=== PATIENT | female | born 1990 | race African-American/Black ===

== ENCOUNTER 2018-09-21 06:28 | Inpatient (IN) ==
[2018-09-21] MEDS ORDERED: fentaNYL 100 MCG/2 ML VIAL IV STA ×2 (07:03→08:54)
[2018-09-21] MEDS ORDERED: SODIUM CHLORIDE 0.9% 1,000 ML IV STA (07:03)
[2018-09-21] MEDS ORDERED: ONDANSETRON 4 MG/2 ML VIAL IV STA (07:03)
[2018-09-21 07:22] LABS: Basophils # 0.1 10*3/uL (0.0-0.2); Basophils % 0.9 % (0.0-0.8); Eosinophils # 0.1 10*3/uL (0.0-0.87); Eosinophils % 1.4 % (0.00-10.9); Hematocrit 22.7 VOL% (35.7-47.0); Hemoglobin 7.5 GM/DL (12.0-16.0); Immature Granulocytes % 0.6 %; Immature Granulocytes Absolute 0.05 #; Lymphocytes # 2.3 10*3/uL (1.4-4.0); Lymphocytes % 27.6 % (21.3-54.2); Mean Corpuscular Volume 88.3 FL (87-102); Mean Platelet Volume 9.3 FL (9.6-12.0); Monocytes % 12.9 % (1.7-12.7); NRBC # 0.46 10*3/uL; Neutrophils % 56.6 % (38.7-73.9); Platelet Count 581 T/CUMM (130-400); Red Blood Count 2.57 MC/CUMM (3.8-5.5); Red Cell Distribution Width 22.6 % (9.3-17.3); White Blood Count 8.1 T/CUMM (4-12)
[2018-09-21 07:35] LABS: Albumin 3.9 G/DL (3.4-5.0); Bilirubin,Total 3.6 MG/DL (0.2-1.0); Osmolality,Calculated 279.1 MOS/KG (273-304); Total Protein 7.9 G/DL (6.4-8.3)
[2018-09-21 07:39] LABS: Hypochromasia 1+; Target Cells Few
[2018-09-21 07:40] LABS: Elliptocytes Few; Macrocytosis Slight; Platelet Estimate Adequate; Polychromasia Slight; Sickle Cells 1+
[2018-09-21 07:41] LABS: Pappenheimer Bodies Few
[2018-09-21 07:42] LABS: Howell-Jolly Bodies Few
[2018-09-21] MEDS ORDERED: diphenhydrAMINE 50 MG/1 ML VIAL ONE (07:56)
[2018-09-21] MEDS ORDERED: diphenhydrAMINE 50 MG/1 ML VIAL IV STA (08:05)
[2018-09-21 08:29] LABS: Apearance,Urine CLEAR (Clear); Bacteria,Urine Occasional /HPF (Few); Bilirubin,Urine Negative (Negative); Blood, Urine Large mg/dL (Negative); Glucose,Urine (UA) Negative (Negative); Ketones,Urine Negative (Negative); Mucus,Urine Occasional /LPF (Occasional); Nitrite,Urine Negative (Negative); Protein,Urine Negative; RBC,Urine 195 /HPF (0-4); Squamous Epithelial Cell,Urine Occasional /HPF (0-10); Urine Color Yellow (Yellow); Urine Specific Gravity 1.012 (1.001-1.035); WBC,Urine 3 /HPF (0-6)
[2018-09-21 08:30] LABS: Barbiturates Screen,Urine Negative (Negative); Benzodiazepines Screen,Urine Negative (Negative); Cannabinoid Screen,Urine Negative (Negative); Opiate Screen,Urine Negative (Negative); Phencyclidine Screen,Urine Negative (Negative)
[2018-09-21] MEDS ORDERED: HYDROmorphone 2 MG/1 ML VIAL IV STA ×2 (09:48→11:35)
[2018-09-21 10:07] LABS: Hemoglobin A1 (Alkaline) 30.3 % (96.5-98.5); Hemoglobin A2 (Alkaline) 2.8 % (1.5-3.5); Hemoglobin S (Alkaline) 66.9 %
[2018-09-21] MEDS ORDERED: ACETAMINOPHEN 325 MG TABLET PO PRN (11:01)
[2018-09-21] MEDS ORDERED: HYDROmorphone 2 MG/1 ML VIAL IV PRN (11:04)
[2018-09-21] MEDS ORDERED: diphenhydrAMINE CAP 50 MG CAPSULE PO PRN (11:05)
[2018-09-21] MEDS ORDERED: SODIUM CHLORIDE 0.9% 1,000 ML IV PRN (11:05)
[2018-09-21] MEDS: SODIUM CHLORIDE 0.45% 1,000 ML IV SCH (14:17)
[2018-09-21] MEDS: ONDANSETRON 4 MG/2 ML VIAL IV PRN ×2 (15:55→22:43)
[2018-09-21] MEDS: MORPHINE 4 MG/1 ML VIAL IV PRN ×2 (16:21→20:08)
[2018-09-21] MEDS ORDERED: HYDROmorphone 2 MG/1 ML VIAL IM PRN (21:50)
[2018-09-21] MEDS ORDERED: diphenhydrAMINE 50 MG/1 ML VIAL IM PRN (21:53)
[2018-09-21] MEDS: HYDROmorphone 2 MG/1 ML VIAL IV PRN (22:38)
[2018-09-21] MEDS: diphenhydrAMINE 50 MG/1 ML VIAL IV PRN (22:40)
[2018-09-22] MEDS: oxyCODONE IR 5 MG TABLET PO PRN ×2 (03:31→07:29)
[2018-09-22] MEDS: MORPHINE 4 MG/1 ML VIAL IV PRN (03:56)
[2018-09-22] MEDS: SODIUM CHLORIDE 0.45% 1,000 ML IV SCH ×3 (04:01→12:22)
[2018-09-22] MEDS: HYDROmorphone 2 MG/1 ML VIAL IV PRN ×2 (05:18→11:15)
[2018-09-22] MEDS: diphenhydrAMINE 50 MG/1 ML VIAL IV PRN ×2 (05:21→11:18)
[2018-09-22] MEDS: ONDANSETRON 4 MG/2 ML VIAL IV PRN ×2 (05:24→11:19)
[2018-09-22 05:32] LABS: Albumin 3.6 G/DL (3.4-5.0); Bilirubin,Total 3.9 MG/DL (0.2-1.0); Calcium 8.7 MG/DL (8.5-10.1); Osmolality,Calculated 278.1 MOS/KG (273-304)
[2018-09-22 06:47] LABS: Basophils # 0.1 10*3/uL (0.0-0.2); Basophils % 0.5 % (0.0-0.8); Eosinophils # 0.2 10*3/uL (0.0-0.87); Eosinophils % 1.4 % (0.00-10.9); Hematocrit 26.9 VOL% (35.7-47.0); Hemoglobin 8.9 GM/DL (12.0-16.0); Immature Granulocytes % 0.6 %; Immature Granulocytes Absolute 0.07 #; Lymphocytes # 3.4 10*3/uL (1.4-4.0); Lymphocytes % 29.4 % (21.3-54.2); Mean Corpuscular HGB Conc 33.1 GM/DL (32-36); Mean Corpuscular Volume 86.5 FL (87-102); Mean Platelet Volume 8.9 FL (9.6-12.0); Monocytes % 8.7 % (1.7-12.7); NRBC # 0.37 10*3/uL; Neutrophils % 59.4 % (38.7-73.9); Platelet Count 507 T/CUMM (130-400); Red Blood Count 3.11 MC/CUMM (3.8-5.5); Red Cell Distribution Width 19.9 % (9.3-17.3); White Blood Count 11.4 T/CUMM (4-12)
[2018-09-22] MEDS ORDERED: FOLIC ACID 1 MG TABLET PO SCH (09:00)
[2018-09-22] MEDS ORDERED: PANTOPRAZOLE 40 MG TABLET PO SCH (09:00)
[2018-09-22 11:28] VITALS: BP 110/80
[2018-09-22] MEDS ORDERED: HEPARIN LOCK FLUSH 500 UNIT/5 ML SYRINGE IV ONE (12:29)
== END 2018-09-22 12:54 | disposition home or self-care (01) | DRG 812 ==
LOC: N.ED 06:28 → SUATTDRO 11:01 → N.EDINP 11:01 → N.4E 12:31
PROVIDERS: ADMIT Internal Medicine; ATTEND Internal Medicine Cardiovascular Disease

== ENCOUNTER 2018-12-18 13:47 | Observation (INO) ==
[2018-12-18 16:21] LABS: Apearance,Urine CLEAR (Clear); Bacteria,Urine Occasional /HPF (Few); Bilirubin,Urine Negative (Negative); Blood, Urine Negative (Negative); Glucose,Urine (UA) Negative (Negative); Ketones,Urine Negative (Negative); Mucus,Urine Occasional /LPF (Occasional); Nitrite,Urine Negative (Negative); Protein,Urine Negative; RBC,Urine <1 /HPF (0-4); Squamous Epithelial Cell,Urine Occasional /HPF (0-10); Urine Color Yellow (Yellow); Urine Specific Gravity 1.011 (1.001-1.035); WBC,Urine 2 /HPF (0-6)
[2018-12-18] MEDS ORDERED: SODIUM CHLORIDE 0.9% 1,000 ML IV STA (16:23)
[2018-12-18 16:53] LABS: Basophils # 0.1 10*3/uL (0.0-0.2); Basophils % 0.5 % (0.0-0.8); Eosinophils # 0.1 10*3/uL (0.0-0.87); Eosinophils % 1.5 % (0.00-10.9); Hematocrit 23.4 VOL% (35.7-47.0); Hemoglobin 7.9 GM/DL (12.0-16.0); Immature Granulocytes % 0.4 %; Immature Granulocytes Absolute 0.04 #; Lymphocytes # 2.4 10*3/uL (1.4-4.0); Lymphocytes % 26.3 % (21.3-54.2); Mean Corpuscular HGB Conc 33.8 GM/DL (32-36); Mean Corpuscular Volume 88.6 FL (87-102); Monocytes % 10.8 % (1.7-12.7); NRBC # 0.14 10*3/uL; Neutrophils % 60.5 % (38.7-73.9); Platelet Count 376 T/CUMM (130-400); Red Blood Count 2.64 MC/CUMM (3.8-5.5); Red Cell Distribution Width 18.7 % (9.3-17.3); White Blood Count 9.2 T/CUMM (4-12)
[2018-12-18 17:13] LABS: Albumin 3.7 G/DL (3.4-5.0); Bilirubin,Total 2.8 MG/DL (0.2-1.0); Calcium 8.4 MG/DL (8.5-10.1); Osmolality,Calculated 277.3 MOS/KG (273-304)
[2018-12-18 17:57] LABS: Barbiturates Screen,Urine Negative (Negative); Benzodiazepines Screen,Urine Negative (Negative); Cannabinoid Screen,Urine Negative (Negative); Opiate Screen,Urine Positive (Negative); Phencyclidine Screen,Urine Negative (Negative)
[2018-12-18] MEDS ORDERED: ONDANSETRON 4 MG/2 ML VIAL IV PRN (18:24)
[2018-12-18] MEDS: ENOXAPARIN 40 MG/0.4 ML SYRINGE SUBCUT SCH (20:52)
[2018-12-18] MEDS: HYDROXYUREA 500 MG CAPSULE PO SCH (20:52)
[2018-12-18] MEDS: HYDROmorphone 2 MG/1 ML VIAL IV PRN (20:52)
[2018-12-18] MEDS: SODIUM CHLORIDE 0.9% 1,000 ML IV SCH (20:56)
[2018-12-18] MEDS: diphenhydrAMINE CAP 25 MG CAPSULE PO PRN (21:47)
[2018-12-19] MEDS: HYDROmorphone 2 MG/1 ML VIAL IV PRN ×5 (00:05→17:47)
[2018-12-19] MEDS: SODIUM CHLORIDE 0.9% 1,000 ML IV SCH ×2 (06:12→21:58)
[2018-12-19 06:13] LABS: Basophils # 0.1 10*3/uL (0.0-0.2); Basophils % 0.6 % (0.0-0.8); Eosinophils # 0.2 10*3/uL (0.0-0.87); Eosinophils % 2.3 % (0.00-10.9); Hematocrit 23.2 VOL% (35.7-47.0); Hemoglobin 7.7 GM/DL (12.0-16.0); Immature Granulocytes % 0.6 %; Immature Granulocytes Absolute 0.06 #; Lymphocytes # 2.1 10*3/uL (1.4-4.0); Lymphocytes % 21.7 % (21.3-54.2); Mean Corpuscular HGB Conc 33.2 GM/DL (32-36); Mean Corpuscular Volume 89.6 FL (87-102); Mean Platelet Volume 9.9 FL (9.6-12.0); Monocytes % 9.6 % (1.7-12.7); NRBC # 0.13 10*3/uL; Neutrophils % 65.2 % (38.7-73.9); Platelet Count 328 T/CUMM (130-400); Red Blood Count 2.59 MC/CUMM (3.8-5.5); Red Cell Distribution Width 18.4 % (9.3-17.3); White Blood Count 9.6 T/CUMM (4-12)
[2018-12-19 06:40] LABS: Albumin 3.3 G/DL (3.4-5.0); Calcium 8.3 MG/DL (8.5-10.1); Osmolality,Calculated 278.1 MOS/KG (273-304); Total Protein 6.6 G/DL (6.4-8.3)
[2018-12-19] MEDS: FOLIC ACID 1 MG TABLET PO SCH (08:00)
[2018-12-19] MEDS: PANTOPRAZOLE 40 MG TABLET PO SCH (08:00)
[2018-12-19] MEDS: HYDROXYUREA 500 MG CAPSULE PO SCH ×2 (08:00→21:59)
[2018-12-19] MEDS: oxyCODONE IR 5 MG TABLET PO PRN ×2 (11:48→17:48)
[2018-12-19] MEDS: diphenhydrAMINE CAP 25 MG CAPSULE PO PRN (15:13)
[2018-12-19] MEDS: ENOXAPARIN 40 MG/0.4 ML SYRINGE SUBCUT SCH (21:59)
[2018-12-20] MEDS: oxyCODONE IR 5 MG TABLET PO PRN ×3 (00:09→12:11)
[2018-12-20] MEDS: HYDROmorphone 2 MG/1 ML VIAL IV PRN ×3 (00:09→12:11)
[2018-12-20 06:03] LABS: Basophils # 0.1 10*3/uL (0.0-0.2); Basophils % 0.6 % (0.0-0.8); Eosinophils # 0.4 10*3/uL (0.0-0.87); Eosinophils % 5.1 % (0.00-10.9); Hemoglobin 7.3 GM/DL (12.0-16.0); Immature Granulocytes % 0.5 %; Immature Granulocytes Absolute 0.04 #; Lymphocytes # 3.3 10*3/uL (1.4-4.0); Lymphocytes % 42.4 % (21.3-54.2); Mean Corpuscular HGB Conc 33.2 GM/DL (32-36); Mean Corpuscular Volume 90.5 FL (87-102); Mean Platelet Volume 10.4 FL (9.6-12.0); Monocytes % 9.9 % (1.7-12.7); NRBC # 0.16 10*3/uL; Neutrophils % 41.5 % (38.7-73.9); Platelet Count 328 T/CUMM (130-400); Red Blood Count 2.43 MC/CUMM (3.8-5.5); Red Cell Distribution Width 18.4 % (9.3-17.3); White Blood Count 7.9 T/CUMM (4-12)
[2018-12-20] MEDS: SODIUM CHLORIDE 0.9% 1,000 ML IV SCH ×2 (06:06→12:11)
[2018-12-20 06:12] LABS: Albumin 3.2 G/DL (3.4-5.0); Total Protein 6.4 G/DL (6.4-8.3)
[2018-12-20] MEDS: PANTOPRAZOLE 40 MG TABLET PO SCH (08:37)
[2018-12-20] MEDS: HYDROXYUREA 500 MG CAPSULE PO SCH (08:39)
[2018-12-20] MEDS: FOLIC ACID 1 MG TABLET PO SCH (08:39)
[2018-12-20 11:30] VITALS: BP 109/58
[2018-12-20] MEDS ORDERED: HEPARIN LOCK FLUSH 500 UNIT/5 ML SYRINGE IV ONE ×2 (12:08→12:39)
== END 2018-12-20 13:05 | disposition home or self-care (01) ==
LOC: N.EDINP 13:47 → N.ED 13:47 → N.EDINP 20:00 → N.4E 20:04
PROVIDERS: ADMIT Internal Medicine; ATTEND Internal Medicine

== ENCOUNTER 2019-03-17 19:35 | Observation (INO) ==
[2019-03-17] MEDS ORDERED: SODIUM CHLORIDE 0.9% 1,000 ML IV STA (20:25)
[2019-03-17 20:32] LABS: Basophils # 0.1 10*3/uL (0.0-0.2); Basophils % 0.7 % (0.0-0.8); Eosinophils % 1.4 % (0.00-10.9); Hemoglobin 7.9 GM/DL (12.0-16.0); Red Cell Distribution Width 17.9 % (9.3-17.3)
[2019-03-17 20:40] LABS: Eosinophils # 0.1 10*3/uL (0.0-0.87); Immature Granulocytes % 0.5 %; Immature Granulocytes Absolute 0.05 #; Lymphocytes # 2.7 10*3/uL (1.4-4.0); Lymphocytes % 27.6 % (21.3-54.2); Mean Corpuscular HGB Conc 34.3 GM/DL (32-36); Mean Corpuscular Volume 89.5 FL (87-102); Mean Platelet Volume 9.7 FL (9.6-12.0); Monocytes % 11.4 % (1.7-12.7); NRBC # 0.08 10*3/uL; Neutrophils % 58.4 % (38.7-73.9); Platelet Count 394 T/CUMM (130-400); Red Blood Count 2.57 MC/CUMM (3.8-5.5); White Blood Count 9.7 T/CUMM (4-12)
[2019-03-17 21:02] LABS: Bilirubin,Total 3.9 MG/DL (0.2-1.0); Calcium 8.4 MG/DL (8.5-10.1); Osmolality,Calculated 276.5 MOS/KG (273-304); Total Protein 7.5 G/DL (6.4-8.3)
[2019-03-17] MEDS ORDERED: DOCUSATE SODIUM 100 MG CAPSULE PO PRN (21:56)
[2019-03-17] MEDS ORDERED: ACETAMINOPHEN 325 MG TABLET PO PRN (21:56)
[2019-03-17] MEDS ORDERED: PROMETHAZINE 25 MG/1 ML VIAL IM PRN (21:56)
[2019-03-17] MEDS: oxyCODONE IR 5 MG TABLET PO SCH (23:39)
[2019-03-18] MEDS: SODIUM CHLORIDE 0.9% 1,000 ML IV SCH ×4 (00:07→18:50)
[2019-03-18] MEDS: ENOXAPARIN 40 MG/0.4 ML SYRINGE SUBCUT SCH ×2 (00:08→21:49)
[2019-03-18] MEDS: ONDANSETRON 4 MG/2 ML VIAL IV PRN ×2 (01:14→17:32)
[2019-03-18] MEDS: HYDROmorphone 2 MG/1 ML VIAL IV PRN ×4 (01:15→17:34)
[2019-03-18] MEDS ORDERED: diphenhydrAMINE CAP 25 MG CAPSULE PO PRN (03:00)
[2019-03-18 04:38] LABS: Basophils # 0.1 10*3/uL (0.0-0.2); Basophils % 0.5 % (0.0-0.8); Eosinophils # 0.1 10*3/uL (0.0-0.87); Eosinophils % 1.5 % (0.00-10.9); Hematocrit 19.8 VOL% (35.7-47.0); Hemoglobin 6.7 GM/DL (12.0-16.0); Immature Granulocytes % 0.5 %; Immature Granulocytes Absolute 0.05 #; Lymphocytes # 2.2 10*3/uL (1.4-4.0); Lymphocytes % 23.3 % (21.3-54.2); Mean Corpuscular HGB Conc 33.8 GM/DL (32-36); Mean Corpuscular Volume 90.4 FL (87-102); Mean Platelet Volume 10.4 FL (9.6-12.0); Monocytes % 12.5 % (1.7-12.7); NRBC # 0.08 10*3/uL; Neutrophils % 61.7 % (38.7-73.9); Platelet Count 290 T/CUMM (130-400); Red Blood Count 2.19 MC/CUMM (3.8-5.5); Red Cell Distribution Width 17.6 % (9.3-17.3); White Blood Count 9.5 T/CUMM (4-12)
[2019-03-18] MEDS: oxyCODONE IR 5 MG TABLET PO SCH ×4 (05:09→21:48)
[2019-03-18 05:10] LABS: Band Neutrophils 3 % (0-10); Eosinophils 2 % (0-10); Lymphocytes 27 % (20-55); Segmented Neutrophils 63 % (50-85); Total Cells Counted 100
[2019-03-18 05:11] LABS: Anisocytosis 1+; Hypochromasia 1+
[2019-03-18 05:12] LABS: Ovalocytes 1+
[2019-03-18 05:13] LABS: Pappenheimer Bodies 1+; Platelet Estimate Normal; Target Cells Few
[2019-03-18] MEDS ORDERED: SODIUM CHLORIDE 0.9% 1,000 ML IV PRN (06:42)
[2019-03-18 07:22] LABS: Albumin 3.5 G/DL (3.4-5.0); Bilirubin,Total 4.1 MG/DL (0.2-1.0); Calcium 7.9 MG/DL (8.5-10.1); Osmolality,Calculated 280.1 MOS/KG (273-304); Total Protein 6.7 G/DL (6.4-8.3)
[2019-03-18] MEDS: FOLIC ACID 1 MG TABLET PO SCH (09:31)
[2019-03-18] MEDS ORDERED: OXYCODONE 30 MG PO PRN (12:10)
[2019-03-18] MEDS: HYDROXYUREA 500 MG CAPSULE PO SCH ×3 (15:19→21:12)
[2019-03-18 17:42] LABS: Apearance,Urine CLEAR (Clear); Bilirubin,Urine Negative (Negative); Blood, Urine Moderate mg/dL (Negative); Glucose,Urine (UA) Negative (Negative); Ketones,Urine Negative (Negative); Mucus,Urine Occasional /LPF (Occasional); Nitrite,Urine Negative (Negative); Protein,Urine Negative; RBC,Urine <1 /HPF (0-4); Squamous Epithelial Cell,Urine Occasional /HPF (0-10); Urine Color Yellow (Yellow); Urine Specific Gravity 1.006 (1.001-1.035); WBC,Urine 1 /HPF (0-6)
[2019-03-19] MEDS: SODIUM CHLORIDE 0.9% 1,000 ML IV SCH ×3 (00:03→06:40)
[2019-03-19] MEDS: HYDROmorphone 2 MG/1 ML VIAL IV PRN ×2 (02:42→07:36)
[2019-03-19] MEDS: oxyCODONE IR 5 MG TABLET PO SCH ×2 (05:09→09:34)
[2019-03-19 05:23] LABS: Basophils # 0.1 10*3/uL (0.0-0.2); Basophils % 1.2 % (0.0-0.8); Eosinophils # 0.6 10*3/uL (0.0-0.87); Eosinophils % 7.7 % (0.00-10.9); Hematocrit 26.1 VOL% (35.7-47.0); Hemoglobin 8.7 GM/DL (12.0-16.0); Immature Granulocytes % 0.9 %; Immature Granulocytes Absolute 0.07 #; Lymphocytes # 2.7 10*3/uL (1.4-4.0); Lymphocytes % 36.7 % (21.3-54.2); Mean Corpuscular HGB Conc 33.3 GM/DL (32-36); Mean Corpuscular Volume 89.1 FL (87-102); Mean Platelet Volume 10.2 FL (9.6-12.0); Monocytes % 13.4 % (1.7-12.7); NRBC # 0.05 10*3/uL; Neutrophils % 40.1 % (38.7-73.9); Platelet Count 345 T/CUMM (130-400); Red Blood Count 2.93 MC/CUMM (3.8-5.5); Red Cell Distribution Width 18.1 % (9.3-17.3); White Blood Count 7.4 T/CUMM (4-12)
[2019-03-19 05:43] LABS: Albumin 3.4 G/DL (3.4-5.0); Bilirubin,Total 3.9 MG/DL (0.2-1.0); Calcium 7.9 MG/DL (8.5-10.1); Osmolality,Calculated 274.5 MOS/KG (273-304); Total Protein 6.4 G/DL (6.4-8.3)
[2019-03-19 07:44] VITALS: BP 101/56
[2019-03-19] MEDS: FOLIC ACID 1 MG TABLET PO SCH (09:34)
[2019-03-19] MEDS ORDERED: HEPARIN LOCK FLUSH 500 UNIT/5 ML SYRINGE IV ONE (10:03)
[2019-03-19] MEDS: HYDROXYUREA 500 MG CAPSULE PO SCH (11:34)
== END 2019-03-19 11:10 | disposition home or self-care (01) ==
LOC: N.EDINP 19:35 → N.ED 19:35 → N.2W 22:15
PROVIDERS: ADMIT Internal Medicine; ATTEND Internal Medicine